=== PATIENT | male | born 1955 | race Hispanic/Latino ===

== ENCOUNTER → 2021-11-13 | Outpatient (CLI) | payer OTHER | END | disposition home or self-care (01) | LOC: RAH 12:36 | PROVIDERS: ATTEND Internal Medicine Cardiovascular Disease | DX: I10 Essential (primary) hypertension (principal) | CPT/HCPCS: 93306; 93356 ==

== ENCOUNTER → 2023-12-13 | Outpatient (CLI) | payer OTHER ==
[~2023-12-13] MED LIST: IOHEXOL 350 MG/ML 100ML INFUS..BTL IV ONE
== END | disposition home or self-care (01) ==
LOC: RAH 08:32 → EDSTATUS 09:00
PROVIDERS: ATTEND Internal Medicine Cardiovascular Disease
DX: I71.30 Abdominal aortic aneurysm, ruptured, unspecified (principal); K76.0 Fatty (change of) liver, not elsewhere classified; M47.815 Spondylosis without myelopathy or radiculopathy, thoracolumbar region; I70.90 Unspecified atherosclerosis; K57.90 Diverticulosis of intestine, part unspecified, without perforation or abscess without bleeding
CPT/HCPCS: 74174; Q9967

== ENCOUNTER → 2024-06-29 | Outpatient (CLI) | payer OTHER | END | disposition home or self-care (01) | LOC: SHCH 07:46 | PROVIDERS: ATTEND Internal Medicine Cardiovascular Disease | DX: I71.43 Infrarenal abdominal aortic aneurysm, without rupture (principal) | CPT/HCPCS: 93978 ==

== ENCOUNTER → 2025-01-09 | Outpatient (CLI) | payer OTHER ==
--- NOTE | 2025-01-15 09:34 | HMCSR ---
APPROVED REPORT Indications i71.4 Duplex Results A/PTransverseLongitudinalVelocityWaveform Proximal Aorta 2.40cm2.77cm2.54cm81.20 cm/sec Mid Aorta 3.56cm3.42cm2.50cm58.10 cm/sec Distal Aorta 4.71cm4.41cm4.26cm57.30 cm/sec Rt. Common Iliac Artery1.63cm1.91cm1.78cm41.90 cm/sec Lt. Common Iliac Artery 1.54cm1.68cm1.34cm55.50 cm/sec Techologist Impression The abdominal aorta and the proximal portion of the right and left common iliac arteries were examine d utilizing duplex ultrasonography. Abdominal aorta aneurysm largest area 4.71 x 4.41 x 4.26 cm RT Iliac dimensions appear aneurysmal 1.63 x 1.91 x 1.78 cm Conclusion By my measurement, there is a 4.4cm x 4.7cm x 5.9 cm long Abdomenal Aortic Aneurysm. From the images reviewed I can't say with certainty if above or below renal arteries. Conclusion By my measurement, there is a 4.4cm x 4.7cm x 5.9 cm long Abdomenal Aortic Aneurysm. From the images reviewed I can't say with certainty if above or below renal arteries.
== END | disposition home or self-care (01) ==
LOC: SHCH 07:31
PROVIDERS: ATTEND Internal Medicine Cardiovascular Disease
DX: I71.43 Infrarenal abdominal aortic aneurysm, without rupture (principal)
CPT/HCPCS: 93978

== ENCOUNTER → 2025-01-29 | Outpatient (CLI) | payer OTHER ==
--- NOTE | 2025-01-31 00:09 | HMCSR ---
APPROVED REPORT EXAM: Two-dimensional and M-mode echocardiogram with Doppler and color Doppler. INDICATION ICD: I10, I25.2, I48.0 2D Dimensions RVDd4.5 cmLVEF(%)46.5 (>50%)LVEF(%, simp.)55 % IVSd0.9 (0.7-1.1cm)FS(%)24 %LA ESV INDEX (BP)32.96 mL/m2 LVDd6.2 (3.8-5.6cm)LVOT diam2.0 (1.8-2.4cm) PWd1.0 (0.7-1.1cm)IVC diam1.6 cm IVSs0.9 cm LVDs4.7 (2.5-4.0cm) PWs1.3 cm M-Mode Dimensions EPSS1.1 cm LA (MM)5.6 (1.6-4.0cm) Ao Root(MM)3.6 (2.0-3.7cm) Aortic Valve AoV Vmax1.6 m/Nirmal Peak GR10.5 mmHgLVOT Vmax1.2 m/s AoV VTI0.3 mAo Mean GR5.0 mmHgLVOT VTI0.25 m ROBIN (VMAX)2.7 cm2AVA (VTI) 2.7 cm2 Mitral Valve MV E Vmax98.6 cm/sDECEL Olmu570 ms MV A Vmax54.2 cm/sP 1/2 T64 ms E/A ratio1.8MVA (PHT)3.4 cm2 TDI E/E' Xjmikm82.7E/E' Pxzmarw31.3 Medial E' Peak V5.00 cm/sLateral E' Peak V8.00 cm/s Pulmonary Valve PV Vmax1.1 m/s Tricuspid Valve TR Vmax2.2 m/sRAP (EST) 3 lcQuOMMN09.9 mmHg TR Peak GR19.9 mmHg Left Ventricle The left ventricle is normal size. Global hypokinesia. There is normal left ventricular wall thicknes s. LVEF is 45-50%. The left ventricular diastolic function is indeterminate. Right Ventricle The right ventricle is moderately dilated. The right ventricular systolic function is normal. Atria The left atrium size is normal. Cannot exclude PFO by color doppler. The right atrium size is normal. Aortic Valve Aortic valve is trileaflet, mildly thickened and opens well. No aortic regurgitation is present. Ther e is no aortic valvular stenosis. Mitral Valve The mitral valve is normal in structure. There is no mitral valve regurgitation noted. There is no mi tral valve stenosis. Tricuspid Valve The tricuspid valve is normal in structure. There is trace of tricuspid valve regurgitation noted. Pulmonic Valve The pulmonary valve is normal in structure. There is no pulmonic valvular regurgitation. Great Vessels The aortic root is normal in size. The IVC is normal in size and collapses >50% with inspiration. Pericardium There is no pericardial effusion. Other Information Quality : Adequate Conclusion LVEF is 45-50%. Global hypokinesia. The right ventricle is moderately dilated.
== END | disposition home or self-care (01) ==
LOC: RAH 12:18
PROVIDERS: ATTEND Internal Medicine Cardiovascular Disease
DX: I35.1 Nonrheumatic aortic (valve) insufficiency (principal); I11.9 Hypertensive heart disease without heart failure; I25.2 Old myocardial infarction; I48.0 Paroxysmal atrial fibrillation; I71.40 Abdominal aortic aneurysm, without rupture, unspecified
CPT/HCPCS: 93306

== ENCOUNTER → 2025-05-30 | Outpatient (CLI) | payer OTHER ==
--- NOTE | 2025-05-31 12:55 | HMCIMG ---
EXAM: CT Angiography Abdomen and Pelvis without and with IV contrast. CLINICAL HISTORY: Abdominal aortic aneurysm. TECHNIQUE: Thin collimated axial CT images of the abdomen and pelvis were obtained with sagittal and coronal reformatted images also submitted. CT scan done according to ALARA (As Low As Reasonably Achievable). Intravenous contrast was administered. COMPARISON: CT angiography abdomen and pelvis dated 12/13/23. FINDINGS: Unremarkable visualized lung parenchyma. There is no focal abnormality appreciated within the liver, pancreas, spleen, adrenals, or kidneys. Post-cholecystectomy status. Severe calcific atheromatous plaques in the abdominal aorta. There is an infrarenal abdominal aortic aneurysm measuring about 4.5 x 4.3 cm (AP x TR) and spanning 7.2 cm in length, with mural thrombus in its anterior aspect. It arises after the origin of the inferior mesenteric artery and extends till the aortic bifurcation. The mural thrombus measures 1 cm. No aneurysmal rupture. The abdominal aorta measures 2.2 cm in anteroposterior dimensions and 2.4 cm in transverse dimensions at the level of renal arteries. Abdominal aorta at the level of bifurcation measures 3.8 cm. The right common iliac artery measures 1.7 cm and the left common iliac artery measures 1.1 cm. The right and left common femoral arteries measure 0.9 cm. Tiny atheromatous plaques at the ostioproximal segments of the celiac trunk, superior mesenteric artery and the left renal artery, without luminal stenosis. Replaced left hepatic artery arising from the left gastric artery. Replaced right hepatic artery arising from the superior mesenteric artery. The common hepatic artery gives rise to the segment IV artery and the gastroduodenal artery. Accessory bilateral renal arteries. There is no obvious bowel wall thickening. Bowel loops are normal in caliber without evidence of obstruction or ileus. The appendix is normal. Uncomplicated colonic diverticulosis. There is no abnormality within the urinary bladder. Mild prostatomegaly with corpora amylacea calcification. No significant lymphadenopathy. No free fluid. There is no acute osseous abnormality. Moderate degenerative osseous changes. IMPRESSION: 1. 4.5 x 4.3 x 7.2 cm infrarenal abdominal aortic aneurysm with 1 cm anterior mural thrombus, arising distal to the inferior mesenteric artery and extending till the aortic bifurcation, without evidence of rupture. 2. Right common iliac artery aneurysm. 3. Severe calcific atheromatous changes of the abdominal aorta with tiny atheromatous plaques at the ostioproximal segments of the celiac trunk, superior mesenteric artery and left renal artery, without luminal stenosis. 4. Anatomic variants: Replaced left hepatic artery arising from left gastric artery, replaced right hepatic artery arising from superior mesenteric artery, and accessory bilateral renal arteries. 5. Post-cholecystectomy changes. 6. Mild prostatomegaly with corpora amylacea calcification. 7. Uncomplicated colonic diverticulosis. 8. Moderate degenerative osseous changes. No significant interval change from the prior imaging, apart from a mild increase in size of the mural thrombus of the abdominal aortic aneurysm from 0.6 cm to 1 cm. /Agenda
== END | disposition home or self-care (01) ==
LOC: CANSCHCLI → RAH 08:36
PROVIDERS: ATTEND Internal Medicine Cardiovascular Disease
DX: I71.43 Infrarenal abdominal aortic aneurysm, without rupture (principal); I70.0 Atherosclerosis of aorta; I74.09 Other arterial embolism and thrombosis of abdominal aorta; K55.1 Chronic vascular disorders of intestine; I70.1 Atherosclerosis of renal artery; K57.30 Diverticulosis of large intestine without perforation or abscess without bleeding; N40.0 Benign prostatic hyperplasia without lower urinary tract symptoms; N48.89 Other specified disorders of penis; I72.3 Aneurysm of iliac artery; I70.8 Atherosclerosis of other arteries; Z90.49 Acquired absence of other specified parts of digestive tract; Z86.79 Personal history of other diseases of the circulatory system
CPT/HCPCS: 74174; Q9967